=== PATIENT | female | born 1965 | race African-American/Black ===

== ENCOUNTER 2017-09-19 15:48 | Emergency (ER) | payer SELFPAY ==
[~2017-09-19] VITALS: Ht 167.6 cm; Wt 64.0 kg
[2017-09-19 15:57] VITALS: BP 145/92
== END 2017-09-19 18:02 | disposition left against medical advice (07) ==
LOC: ER 15:48
DX: R51 Headache (principal); R22.0 Localized swelling, mass and lump, head
CPT/HCPCS: 99281